=== PATIENT | male | born 2000 | race Caucasian/White ===

== ENCOUNTER 2022-11-18 04:05 | Outpatient (CLI) | payer MEDICAID, SELFPAY | END 2022-11-18 04:06 | disposition home or self-care (01) | PROVIDERS: Visit Provider Family Medicine | DX: R11.10 Vomiting, unspecified (principal) | CPT/HCPCS: A0425; A0427 ==

== ENCOUNTER 2022-11-18 04:37 | Emergency (ER) | payer OTHER, SELFPAY ==
[2022-11-18 04:42] VITALS: BP 114/81; PULSE 84; RESP 18; TEMP 36.7; O2SAT 99; BMI 20.8
[2022-11-18] MEDS: 0.9 % SODIUM CHLORIDE 1000 ml 1,000 ML IV ×2 (04:50)
[2022-11-18 05:00] VITALS: O2SAT 97
[2022-11-18 05:04] LABS: Basophils Percent Auto 0.2 % (0.0-3.0); Eosinophils Percent Auto 0.3 % (0.0-7.0); Hematocrit 45.4 % (37.0-53.0); Hemoglobin* 15.9 gm/dL (13.5-17.5); Immature Granulocytes Pct Auto 0.2 %; Lymphocytes Percent Auto 6.3 % (20-44); Mean Corpuscular HGB Conc 35 gm/dL (32-36); Mean Corpuscular Hemoglobin 30 pg (26-34); Mean Corpuscular Volume 87 fL (80-100); Monocytes Percent Auto 8.1 % (0.0-11.0); Neutrophils Percent Auto 84.9 % (42.0-72.0); Platelet Count* 162 K/uL (140-440); RDW Coefficient of Variation % 11.8 % (11.5-15.5); Red Blood Count 5.23 m/uL (4.30-5.90); White Blood Count* 11.94 K/uL (4.50-11.00)
[2022-11-18 05:06] LABS: Lactate* 1.9 mmol/L (0.5-1.9)
[2022-11-18 05:07] LABS: Slide Review Reflex No
--- NOTE | 2022-11-18 05:08 | ED_ITS ---
HPI - Nausea/Vomiting/Diarrhea General Date Seen: 11/18/22 Chief complaint: Nausea/Vomiting Stated complaint: Food poisoning Time Seen by Provider: 11/18/22 04:42 Source: patient, EMS and other (Significant other) Mode of arrival: EMS Limitations: no limitations History of Present Illness HPI Narrative: Patient is a 21-year-old gentleman who presents here with acute nausea vomiting, the came on approximately 2 and half to 3 hours ago, times it on eating at [employer], thinks they have had E coli outbreaks in the past, interesting thing is person he has with your, his significant other ate the same thing, and otherwise feels fine. No fevers no chills leading up to this, denies any abdominal pain, no coughing wheezing shortness of breath rashes. He has had some diarrhea at least 2 loose stools with this approximately 6-7 times vomiting, the vomit has only been clear, no blood within this, no previous history of surgeries. MD elicited complaint: nausea, vomiting and diarrhea Onset (ago): hour(s) (3) Description of vomiting: food contents and watery Description of diarrhea: watery and semi-solid Associated nausea: Yes Associated abdominal pain: No Location of pain: none Exacerbating factors: none Relieving factors: none Context: possible food poisoning Associated symptoms: denies other symptoms Treatment prior to arrival: other (Was given Zofran in the EMS) Related Data Home Medications Medication Instructions Recorded Confirmed venlafaxine 150 mg 150 mg PO DAILY 11/18/22 11/18/22 capsule,extended release 24 hr (Effexor XR) Allergies Allergy/AdvReac Type Severity Reaction Status Date / Time No Known Drug Allergies Allergy Verified 11/18/22 04:46 Review of Systems Status of ROS: Reports: 10 or more systems reviewed and unremarkable except as noted in History and below GI: Reports: nausea PFSH PFSH Medical History Alcohol use disorder, severe, dependence Hypokalemia Intentional drug overdose MDD (major depressive disorder), recurrent severe, without psychosis Surgical History No significant past surgical history Social History Smoking Status: Never smoker Do you use any of these nicotine containing products: None Second hand tobacco smoke exposure: No How often do you have a drink containing alcohol: never How often do you have six or more drinks on one occasion: Never AUDIT-C Alcohol total score: 0 Non-prescribed substance use: marijuana (any form) Exam Narrative: Exam Narrative: Patient is seen in room 3. , Patient is speaking normally,no problem with slurring words, oriented x3. Head eyes ears nose and throat exam show equal pupils, no scleral icterus, extraocular muscles are normal, no facial droop, speech is normal, trachea normal and midline. Thyroid normal midline palpable not enlarged. Chest shows symmetrical rise bilaterally, normal auscultation with no wheezes, no increased work of breathing, no overt bruising or lesions seen, no tenderness is noted on auscultation. Heart sounds normal with no S3-S4 no murmurs clicks or gallops. Abdomen shows no obvious masses or hepatosplenomegaly, no organomegaly, bowel sounds are normal in all quadrants. No tenderness is noted also in all quadrants. Upper and lower extremities show normal power, normal range of motion, pulses are normal, sensations normal, fine motor movements are normal, pelvis is stable to rocking. Cervical spine shows normal range of motion, and palpably not tender. Thoracic spine shows normal range of motion, and palpably not tender, lumbar spine shows no tenderness to palpation percussion and is otherwise normal range of motion. Skin shows no rashes, petechiae or eccymosis. Const: Vital Signs, click to edit/add: Vital Signs - 24 hr 11/18/22 04:42 11/18/22 05:00 11/18/22 06:24 Temperature 98.0 F 98.5 F Pulse Rate [Left P ulse Oximeter] 84 79 Respiratory Rate 18 18 Blood Pressure [Ri ght Upper Arm] 114/81 118/74 Pulse Oximetry 99 97 97 Oxygen Delivery Me thod Room Air Room Air Documenting provider has reviewed patient's vital signs: yes Course Reevaluation(s) Reevaluation #1: Went back in, patient was lying comfortably, woke him from sleep, examine his belly there is soft, there is no tenderness at all, no organomegaly, he feels much improved. I reviewed with him his laboratory tests, no significant red flags. At this point I think we can discharge him home, he will be vigilant and watching for signs and symptoms of worsening and re-presented if these occur this is gone over with him in detail. Time: 06:35 Vital Signs Vital signs: Initial Vital Signs Temperature 98.0 F 11/18/22 04:42 Temperature Source Temporal Artery Scan 11/18/22 04:42 Pulse Rate 84 11/18/22 04:42 Respiratory Rate 18 11/18/22 04:42 Blood Pressure 114/81 11/18/22 04:42 Blood Pressure Mean 92 11/18/22 04:42 Blood Pressure Position Sitting 11/18/22 04:42 Pulse Oximetry 99 11/18/22 04:42 Oxygen Delivery Method 11/18/22 04:42 Vital Signs Temperature 98.0 F 11/18/22 04:42 Pulse Rate 84 11/18/22 04:42 Respiratory Rate 18 11/18/22 04:42 Blood Pressure 114/81 11/18/22 04:42 Pulse Oximetry 99 11/18/22 04:42 Oxygen Delivery Method 11/18/22 04:42 Temperature 98.5 F 11/18/22 06:24 Pulse Rate 79 11/18/22 06:24 Respiratory Rate 18 11/18/22 06:24 Blood Pressure 118/74 11/18/22 06:24 Pulse Oximetry 97 11/18/22 06:24 Oxygen Delivery Method 11/18/22 06:24 MDM - Nausea/Vomiting/Diarrhea MDM Narrative Medical decision making narrative: Differential diagnosis includes but is not limited to viral gastroenteritis, drug food poisoning, pyloric stenosis, gastritis, pancreatitis, hepatitis, cholecystitis, appendicitis, bowel obstruction, hyperemesis, cyclic vomiting syndrome, bulimia nervosa, migraine headache, motion sickness and medication side effect. These include the life threatening complications of appendicitis, drug food poisoning and bowel obstruction. Medical Records Attestation: I reviewed the patient's medical records. Lab Data Attestation: I reviewed the patient's lab results. Labs: Lab Results 11/18/22 11/18/22 11/18/22 Range/Units 04:55 04:55 04:55 WBC 11.94 H (4.50-11.00) K/uL RBC 5.23 (4.30-5.90) m/uL Hgb 15.9 (13.5-17.5) gm/dL Hct 45.4 (37.0-53.0) % MCV 87 (80-100) fL MCH 30 (26-34) pg MCHC 35 (32-36) gm/dL RDW Coeff of Roberto 11.8 (11.5-15.5) % Plt Count 162 (140-440) K/uL Neut % (Auto) 84.9 H (42.0-72.0) % Lymph % (Auto) 6.3 L (20-44) % Larue % (Auto) 8.1 (0.0-11.0) % Eos % (Auto) 0.3 (0.0-7.0) % Baso % (Auto) 0.2 (0.0-3.0) % Neut # (Auto) 10.10 H (1.7-7.0) K/uL Lymph # (Auto) 0.80 L (0.90-2.90) K/uL Larue # (Auto) 1.00 H (0.00-0.90) K/UL Eos # (Auto) 0.00 (0.00-0.50) K/uL Baso # (Auto) 0.00 (0.00-0.30) K/uL Sodium Cancelled Potassium Cancelled Chloride Cancelled Carbon Dioxide Cancelled BUN Cancelled Creatinine Cancelled Estimated Creat Clear Cancelled Estimated GFR Cancelled Glucose Cancelled Lactate 1.9 (0.5-1.9) mmol/L Calcium Cancelled Total Bilirubin Cancelled Direct Bilirubin Cancelled AST Cancelled ALT Cancelled Alkaline Phosphatase Cancelled Total Protein Cancelled Albumin Cancelled Lipase (23-300) U/L Urine Opiates Screen (Negative) Ur Oxycodone Screen (Negative) Urine Methadone Screen (Negative) Ur Propoxyphene Screen (Negative) Ur Barbiturates Screen (Negative) U Tricyclic Antidepress (Negative) Ur Phencyclidine Scrn (Negative) Ur Amphetamines Screen (Negative) U Methamphetamines Scrn (Negative) U Benzodiazepines Scrn (Negative) Urine Cocaine Screen (Negative) U Marijuana (THC) Screen (Negative) Ur Drug Screen Comment Ethyl Alcohol (0.01-0.03) % 11/18/22 11/18/22 11/18/22 Range/Units 04:55 04:55 04:59 WBC (4.50-11.00) K/uL RBC (4.30-5.90) m/uL Hgb (13.5-17.5) gm/dL Hct (37.0-53.0) % MCV (80-100) fL MCH (26-34) pg MCHC (32-36) gm/dL RDW Coeff of Roberto (11.5-15.5) % Plt Count (140-440) K/uL Neut % (Auto) (42.0-72.0) % Lymph % (Auto) (20-44) % Larue % (Auto) (0.0-11.0) % Eos % (Auto) (0.0-7.0) % Baso % (Auto) (0.0-3.0) % Neut # (Auto) (1.7-7.0) K/uL Lymph # (Auto) (0.90-2.90) K/uL Larue # (Auto) (0.00-0.90) K/UL Eos # (Auto) (0.00-0.50) K/uL Baso # (Auto) (0.00-0.30) K/uL Sodium 143 Potassium 3.8 Chloride 109 Carbon Dioxide 24 BUN 13 Creatinine 0.7 Estimated Creat Clear 142.44 Estimated GFR 134 Glucose 85 Lactate (0.5-1.9) mmol/L Calcium 9.0 Total Bilirubin 0.9 Direct Bilirubin 0.1 AST 25 ALT 22 Alkaline Phosphatase 74 Total Protein 7.1 Albumin 4.7 Lipase 111 (23-300) U/L Urine Opiates Screen Negative (Negative) Ur Oxycodone Screen Negative (Negative) Urine Methadone Screen Negative (Negative) Ur Propoxyphene Screen Negative (Negative) Ur Barbiturates Screen Negative (Negative) U Tricyclic Antidepress Negative (Negative) Ur Phencyclidine Scrn Negative (Negative) Ur Amphetamines Screen Negative (Negative) U Methamphetamines Scrn Negative (Negative) U Benzodiazepines Scrn Negative (Negative) Urine Cocaine Screen Negative (Negative) U Marijuana (THC) Screen POSITIVE A* (Negative) Ur Drug Screen Comment See Note Ethyl Alcohol < 0.01 L (0.01-0.03) % Discharge Plan Discharge Clinical Impression: Gastroenteritis Patient Disposition: Home w/ Parent or Adult Condition: Improved Instructions: Gastroenteritis (DC), Acute Nausea and Vomiting (ED) Additional Instructions: Home rest fluids, uses Zofran for ongoing symptoms, return as needed, for increasing abdominal pain fevers chills, or other things may use some Tylenol, clear fluids today, increasing diet slowly. Activity Level: No Restrictions Discharge Diet: Clear Liquid Prescriptions: No Action venlafaxine [Effexor XR] 150 mg capsule,extended release 24hr 150 mg PO DAILY Stand Alone Forms: [facility] Info Instructions
[2022-11-18 05:27] LABS: Albumin* 4.7 g/dL (3.3-5.0); Chloride* 109 mmol/L (96-114); Potassium* 3.8 mmol/L (3.6-5.1); Sodium* 143 mmol/L (135-149)
[2022-11-18 05:29] LABS: Creatinine* 0.7 mg/dL (0.5-1.5); Est. Creatinine Clearance* 142.44; Estimated Glomerular Filt Rate 134 ml/min; Lipase* 111 U/L (23-300)
[2022-11-18 05:30] LABS: Alanine Aminotransferase* 22 U/L (4-50); Alkaline Phosphatase* 74 U/L (40-150); Aspartate Amino Transferase* 25 U/L (12-35); Bilirubin Direct* 0.1 mg/dL (0.0-0.5); Bilirubin Total* 0.9 mg/dL (0.1-1.5); Blood Urea Nitrogen* 13 mg/dL (5-24); Carbon Dioxide* 24 mmol/L (20-32); Glucose* 85 mg/dL (60-115); Total Protein* 7.1 g/dL (6.0-8.3)
[2022-11-18 05:32] LABS: Ethanol* < 0.01 % (0.01-0.03)
[2022-11-18 05:44] LABS: Amphetamine Screen Urine Negative (Negative); Barbiturate Screen Urine Negative (Negative); Benzodiazepines Screen Urine Negative (Negative); Cocaine Screen Urine Negative (Negative); Methadone Screen Urine Negative (Negative); Methamphetamines Screen Urine Negative (Negative); Opiate Screen Urine Negative (Negative); Oxycodone Screen Urine Negative (Negative); Phencyclidine Screen Urine Negative (Negative); Tricyclic Antidepressant Urine Negative (Negative)
[2022-11-18 06:00] LABS: Cannabinoid Screen Urine POSITIVE (Negative)
[2022-11-18 06:24] VITALS: BP 118/74; PULSE 79; RESP 18; TEMP 36.9; O2SAT 97
[2022-11-18 06:34] VITALS: BP 118/74; PULSE 79; RESP 18; TEMP 36.9
== END 2022-11-18 06:35 | disposition home or self-care (01) ==
LOC: ED 05:41
PROVIDERS: Emergency Provider Family Medicine
DX: K52.9 Noninfective gastroenteritis and colitis, unspecified (principal)
CPT/HCPCS: 36415; 80048; 80076; 80306; 82077; 83605; 83690; 85025; 94761; 96360; 99283; 99284; J7030